=== PATIENT | female | born 1960 | race Two or more races ===

== ENCOUNTER 2024-11-12 13:13 | Emergency (ER) | payer OTHER, MEDICAID ==
[~2024-11-12] VITALS: Ht 165.1 cm; Wt 90.0 kg
[~2024-11-12 13:13] MED LIST: ALBUAER3 IN; ASPI81CH59 PO; ATOR10TA PO; BUPR-413 PO; FLUT1AER3 IN; IRBE300T79 PO; METH5TAB98 PO
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
--- NOTE | 2024-11-12 14:50 | DVH ---
EXAM: XY LUMBAR SPINE 3 VIEW HISTORY: lower back pain COMPARISON: For reasons unknown, CT scan of the lumbar spine dated 01/09/2024 was not made available in the PACS system for viewing. TECHNIQUE: AP and lateral views of the lumbar spine and spot lateral of the lumbosacral junction were performed. FINDINGS/IMPRESSION: 1. Probable chronic mild superior endplate compression fracture of L2. Recommend comparison with pre vious CT scan of the lumbar spine to evaluate if this is a stable or new finding. 2. Postoperative changes of L3-L5 discectomy, laminectomy, and posterior spinal fusion with pedicle s crews and rods. No evidence of hardware failure or complication at this time. 3. Severe osteoarthritis of the left hip, not fully imaged here. 4. Fecal retention in the partially visualized colon which may indicate constipation.
[2024-11-12 15:29] VITALS: PULSE 79; RESP 18; O2SAT 96
[2024-11-12] MEDS: HYDROcodone-ACET 5/325MG TAB PO ONE (15:29)
[2024-11-12] MEDS: BACLOFEN 10 MG TAB PO ONE (16:56)
[2024-11-12 17:05] VITALS: BP 135/87; PULSE 88; RESP 18; TEMP 98.3; O2SAT 98
[2024-11-12] MEDS ORDERED: OXYC-998 PO (17:09)
== END 2024-11-12 17:28 | disposition home or self-care (01) ==
LOC: EDBD 13:13 → ER 13:13
DX: S39.012A Strain of muscle, fascia and tendon of lower back, initial encounter (principal); Z79.899 Other long term (current) drug therapy; V89.2XXA Person injured in unspecified motor-vehicle accident, traffic, initial encounter; Y93.89 Activity, other specified; Y92.410 Unspecified street and highway as the place of occurrence of the external cause; Y99.8 Other external cause status
CPT/HCPCS: 72100

== ENCOUNTER 2025-02-25 21:39 | Inpatient (IN) | payer MEDICAID, OTHER ==
[~2025-02-25] VITALS: Ht 170.2 cm; Wt 82.0 kg
[~2025-02-25 21:39] MED LIST changes: +OXYC-998 PO
[2025-02-25 22:34] VITALS: PULSE 78; RESP 22; O2SAT 94
[2025-02-25 23:01] LABS: Hematocrit 41.1 % (36.0-46.0); Hemoglobin 13.9 g/dL (12.2-16.2); Mean Corpuscular Hemoglobin 29.3 pg (28.0-32.0); Mean Corpuscular Volume 86.5 fL (80.0-100.0); Nucleated Red Blood Cells % 0.1 %
--- NOTE | 2025-02-25 23:07 | DVH ---
CHEST RADIOGRAPH Indication: sob Technique: Single frontal view of the chest was obtained Comparison: CT CHEST on DOS: 01/09/24, CR CHEST 2 VIEW on DOS: 01/05/24, XR CHEST 1 VIEW on DOS: 12/21/23 , XY CHEST TWO VIEWS ROUTINE on DOS: 08/30/23 FINDINGS/IMPRESSION: Patchy opacities within the right mid and lower lung. Possible 8 mm right lower lung nodule. This may be further assessed with CT if clinically indicated. Prominence of the interstitial markings. Enlar gement of the cardiomediastinal silhouette, likely accentuated by technique. No pleural effusion or p neumothorax. No acute osseous abnormality.
[2025-02-25 23:13] LABS: Chloride 106 mmol/L (98-107); Sodium 143 mmol/L (136-145)
[2025-02-25 23:14] LABS: Anion Gap 8 (5-15); Calcium 10.4 mg/dL (8.7-10.4); Carbon Dioxide 29 mmol/L (20-31)
[2025-02-25 23:19] LABS: BUN/Creatinine Ratio 27.5 (10.0-20.0); Blood Urea Nitrogen 11 mg/dL (9-23); Glucose 103 mg/dL (74-106)
[2025-02-25 23:35] LABS: Potassium 3.0 mmol/L (3.5-5.1)
--- NOTE | 2025-02-25 23:37 | ED.PDOC ---
History of Present Illness HPI Comments Sterile female comes in stating that she felt off over the last two days. Says she has been feeling some mild dizziness. States today it got much worse. She went to stand up and felt very fatigued tired and dizzy. States she has been coughing up phlegm and sputum over the last two days. She tried using her breathing treatments with no help. States no chest pain. No fever no chills. Nothing makes it better, nothing makes it worse. States she has been out of her blood pressure medications for the last two weeks. Today she also felt a pulsating in her ears. Chief Complaint: Dizziness Time Seen by MD: 22:12 Reviewed Notes: Nurses Notes Allergies: Coded Allergies: NO KNOWN ALLERGIES (Unverified , 08/30/23) Home Meds Active Scripts Oxycodone HCl (Oxycodone Hydrochloride) 10 Mg Tab, 10 MG PO TID PRN for 4 Days, #12 TAB Prov:ZACHARY NAGEL MD 11/12/24 Reported Medications Aspirin (Aspirin Low Dose) 81 Mg Chw, 81 MG PO DAILY, TAB.CHEW 08/30/23 Albuterol Sulfate (VENTOLIN MDI) 90 Mcg Ih, 90 MCG IN PRN, INH 08/30/23 Qzqtegcillm-Ymnuvotqqqzx-Lckmc (Trelegy Ellipta 100-62.5-25 Mcg/INH) Unknown Strength Aer, IN DAILY, AER 08/30/23 Methimazole (Methimazole) 5 Mg Tab, 5 MG PO DAILY, TAB 08/30/23 Atorvastatin Calcium (Lipitor) Unknown Strength Tab, PO DAILY, TAB 08/30/23 Irbesartan (Avapro) Unknown Strength Tab, PO DAILY, TAB 08/30/23 Bupropion Hcl (WELLBUTRIN TABLET) 100 Mg Tb, 100 MG PO DAILY, TAB 08/30/23 Information Source: Patient Mode of Arrival: EMS Past Medical History PAST MEDICAL HISTORY: Denies Surgical History: Denies all surgeries 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 PHYSICIAN 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 History Family History Family History: Reviewed,noncontributory to illness, No family hx of Cancer, No family hx of DM, No family hx of Heart jorge, No family hx of HTN, No family hx ofKidney jorge, No family hx of Liver jorge, No family hx of Lung jorge, No family hx of Stroke Social History Smoker: Non-Smoker Alcohol: Denies ETOH Use Drugs: Denies Drug Use Lives In: Home Constitutional: reports: fatigue, malaise; denies: chills, diaphoresis, fever, sweats, weakness, others EENTM: denies: blurred vision, double vision, ear bleeding, ear discharge, ear drainage, ear pain, ear ringing, eye pain, eye redness, hearing loss, mouth pain, mouth swelling, nasal discharge, nose bleeding, nose congestion, nose pain, photophobia, tearing, throat pain, throat swelling, voice changes, others Respiratory: reports: cough, SOB at rest; denies: hemoptysis, orthopnea, shortness of breath, SOB with excertion, stridor, wheezing, others Cardiovascular: reports: dizzy spells, diaphoresis; denies: chest pain, Dyspnea on exertion, edema, irregular heart beat, left arm pain, lightheadedness, palpitations, PND, syncope, others Gastrointestinal: denies: abdomen distended, abdominal pain, blood streaked bowels, constipated, diarrhea, dysphagia, difficulty swallowing, hematemesis, melena, nausea, poor appetite, poor fluid intake, rectal bleeding, rectal pain, vomiting, others Genitourinary: denies: abnormal vagina bleeding, burning, dyspareunia, dysuria, flank pain, frequency, hematuria, incontinence, pain, , vagina discharge, urgency, others Neurological: denies: dizziness, fainting, headache, left sided numbness, left sided weakness, numbness, paresthesia, pre-existing deficit, right sided numbness, right sided weakness, seizure, speech problems, tingling, tremors, weakness, others Musculoskeletal: denies: back pain, gout, joint pain, joint swelling, muscle pain, muscle stiffness, neck pain, others Integumetry: denies: bruises, change in color, change in hair/nails, dryness, laceration, lesions, lumps, rash, wounds, others Allergic/Immunocompromised: denies: Difficulty Healing, Frequent Infections, Hives, Itching, others Hematologic/Lymphatic: denies: anemia, blood clots, easy bleeding, easy bruising, swollen glands, others Physical Exam General Appearance: Mild Distress, Normal HEENT: Normal ENT Inspection, Pharynx Normal, TMs Normal Neck: Full Range of Motion, Non-Tender, Normal, Normal Inspection Respiratory: Chest Non-Tender, Lungs Clear, No Accessory Muscle Use, No Respiratory Distress, Normal Breath Sounds Cardiovascular: No Edema, No JVD, No Murmur, No Gallop, Normal Peripheral Pulses, Regular Rate/Rhythm Breast Exam: Deferred Gastrointestinal: No Organomegaly, Non Tender, No Pulsatile Mass, Normal Bowel Sounds, Soft Genitalia: Deferred Pelvic: Deferred Rectal: Deferred Extremities: No calf tenderness, Normal capillary refill, Normal inspection, Normal range of motion, Non-tender, No pedal edema Musculoskeletal : Apperance: Normal Neurologic: Alert, delivery consultant II-XII nml as Tested, No Motor Deficits, Normal Affect, Normal Mood, No Sensory Deficits Cerebellar Function: Normal Reflexes: Normal Skin: Dry, Normal Color, Warm Lymphatic: No Adenopathy Was a procedure done? Was a procedure done?: No Differential Dx Considerations may include: Pneumonia, CHF exacerbation, SD, hypertensive urgency, CVA, TIA, PE X-Ray, Labs, Meds, VS Vital Signs Date Time Temp Pulse Resp B/P (MAP) Pulse Ox O2 Delivery O2 Flow Rate FiO2 02/25/25 22:54 162/87 02/25/25 22:34 78 22 94 Room Air* 0 21 02/25/25 22:34 98.1 78 20 162/87 (112) 97 98.1 02/25/25 21:51 115 02/25/25 21:51 98.1 99 20 198/98 96 98.1 Lab Test 02/25/25 23:20 02/25/25 22:44 02/25/25 21:55 Range/Units Urine Color Pending Urine Clarity Pending Urine pH Pending Urine Specific D[place]on Pending Urine Protein Pending Urine Ketones Pending Urine Blood Pending Urine Nitrite Pending Urine Bilirubin Pending Urine Urobilinogen Pending Urine Leukocyte Esterase Pending Urine RBC Pending Urine Microscopic WBC Pending Urine Squamous Epithelial Cells Pending Urine Bacteria Pending Urine Glucose Pending White Blood Count 3.9 L 4.4-10.8 10^3/uL Red Blood Count 4.75 4.0-5.20 10^6/uL Hemoglobin 13.9 12.2-16.2 g/dL Hematocrit 41.1 36.0-46.0 % Mean Corpuscular Volume 86.5 80.0-100.0 fL Mean Corpuscular Hemoglobin 29.3 28.0-32.0 pg Mean Corpuscular Hemoglobin Concent 33.9 32.0-36.0 g/dL Red Cell Distribution Width 14.0 11.8-14.3 % Platelet Count 257 140-450 10^3/uL Mean Platelet Volume 7.7 6.9-10.8 fL Neutrophils (%) (Auto) 50.8 37.0-80.0 % Lymphocytes (%) (Auto) 34.7 10.0-50.0 % Monocytes (%) (Auto) 11.4 0.0-12.0 % Eosinophils (%) (Auto) 2.7 0.0-7.0 % Basophils (%) (Auto) 0.4 0.0-2.0 % Neutrophils # (Auto) 2.0 1.6-8.6 10 ^3/uL Lymphocytes # (Auto) 1.4 0.4-5.4 10 ^3/uL Monocytes # (Auto) 0.4 0-1.3 10 ^3/uL Eosinophils # (Auto) 0.1 0-0.8 10 ^3/uL Basophils # (Auto) 0 0-0.2 10 ^3/uL Nucleated Red Blood Cells 0.1 % Sodium Level Pending Potassium Level Pending Chloride Level Pending Carbon Dioxide Level Pending Anion Gap Pending Blood Urea Nitrogen Pending Creatinine Pending Glomerular Filtration Rate Calc Pending BUN/Creatinine Ratio Pending Serum Glucose Pending Calcium Level Pending Troponin I High Sensitivity Pending B-Type Natriuretic Peptide Pending POC Glucose 119 H 70-106 mg/dl Current Medications Medications (Trade) Dose Ordered Sig/Yeni Route Start Time Stop Time Status Last Admin Clonidine HCl (Catapres Tablet) 0.2 mg ONCE ONCE PO 02/25/25 22:45 02/25/25 22:46 DC 02/25/25 22:54 X-Ray, Labs, Meds, VS Comment Patient will be admitted for pneumonia, shortness of breath, hypertensive urgency Patient be started on Rocephin 1 g Pending CTA of chest Patient hemodynamically stable Time of 1ST Reevaluation: 23:37 Reevaluation 1ST: Unchanged Patient Education/Counseling: Diagnosis, Treatment Family Education/Counseling: Diagnosis, Treatment SEPSIS Sepsis Screen Date sepsis recognized/suspect: Feb 25, 2025 Time Sepsis recognized/suspect: 2236 Recent Procedure: No On Antibiotic Therapy: No Respiratory Rate >20: No Heart Rate >90: No Temp<36 C (96.8 F) or >38.3 C: No SBP <90 or MAP <65 mmHG: No New Acute Mental Status Change: No Is the patient on CPAP, BIPAP,: No Physician Orders Electrocardigram (02/25/25 21:55) Basic Metabolic Panel (02/25/25 22:35) B-Type Natriuretic Peptide (02/25/25 22:35) Troponin-I Hs (02/25/25 22:35) Urinalysis (02/25/25 22:35) Chest Xray 1 View (02/25/25 22:35) Troponin-I Hs (02/25/25 23:35) Troponin-I Hs (02/26/25 01:35) Ceftriaxone 1gm/50ml (Rocephin) (02/25/25 23:30) Ct Angio Chest Contrast (02/25/25 23:25) Vital Signs Date Time Temp Pulse Resp B/P (MAP) Pulse Ox O2 Delivery O2 Flow Rate FiO2 02/25/25 22:54 162/87 02/25/25 22:34 78 22 94 Room Air* 0 21 02/25/25 22:34 98.1 78 20 162/87 (112) 97 98.1 02/25/25 21:51 115 02/25/25 21:51 98.1 99 20 198/98 96 98.1 Laboratory Tests Test 02/25/25 22:44 White Blood Count 3.9 10^3/uL (4.4-10.8) L Medications Medications Dose Ordered Sig/Yeni Route Start Time Stop Time Status Last Admin Dose Admin Clonidine HCl 0.2 mg ONCE ONCE PO 02/25/25 22:45 02/25/25 22:46 DC 02/25/25 22:54 Departure 1 Departure Time of Disposition: 23:36 Impression: Primary Impression: Pneumonia Qualified Codes: J18.9 - Pneumonia, unspecified organism Additional Impressions: Lung nodule Hypertensive urgency Disposition: 09 ADMITTED INPATIENT Condition: Stable Critical Care Note Critical Care Time?: No Stability Stability form required: No Heart Score Heart Score: Heart Score Response (Comments) Value History N/A 0 EKG N/A 0 Age N/A 0 Risk Factors N/A 0 Troponin N/A 0 Total 0 ANGE GARCIAP Feb 25, 2025 23:37
--- NOTE | 2025-02-25 23:52 | DVHHPRES ---
History of Present Illness Resident Creating Document: HETAL ROSALES History of Present Illness Ms. Mancia Is a 64-year-old female with prior medical history of unspecified heart failure, hypertension, hyperlipidemia, COPD, Graves disease, esophageal erosions, and history of an ovarian tumor, who presents today with chief complaint of dizziness and shortness of breath. The patient states that 2 days ago she woke up with shortness of breath. The patient states this is constant at rest, worsens when she lays flat, and is slightly relieved with use of nebulizer at home. Additionally refers occasional productive cough with clear expectoration associated with chest tightness and bilateral lower leg swelling. She denies fever, palpitations, chest pain, nausea, vomiting, diaphoresis, loss of consciousness, and other symptoms. On evaluation in the ED, she was in mild distress, tachycardic, and hypertensive. Initial labs show WBCs 3.9, hypokalemia, hyperglycemia, BNP 399.58, TSH <0.01, UDS positive for opiates and amphetamines, and UA with no significant findings. Chest x-ray shows patchy opacities within the right mid and lower lung, possible 8 mm right lower lung nodule. CT angio shows no pulmonary embolism, no acute thoracic finding, cardiomegaly, moderate diffuse centrilobular emphysema. She was started on IV furosemide, IV antibiotics, and breathing treatments. She was admitted for further workup and monitoring. 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 GI: GI bleed Psych: Depression Musculoskeletal: Other (Chronic hip pain) Renal/: Other (History of ovarian tumor) Endocrine: Other (Graves disease) Past Surgical History: Other (Back surgery, right hand and right ear reattachment, reconstruction of side of face) Family History: Other (Mother: DVT) Smoke: <1 pack per day (1 cigarette a day, down from 1 pack a week for 40 years) ALCOHOL: none Drugs: Marijuana (Refers she smokes 1 joint a day for sleep), Other (UDS positive for methamphetamines and opiates) Lives: with Family Domestic Violence: Neg Review of Systems Review of Systems Constitutional: Refers nausea, Denies weight loss, fever and chills. HEENT: Denies changes in vision and hearing. Respiratory: Refers shortness of breath and occasional cough Cardiovascular: Refers chest tightness Denies chest pain or palpitations GI: Denies abdominal distention, abdominal pain, diarrhea : Denies dysuria and urinary frequency. Musculoskeletal: Refers left hip pain Skin: Denies rash and pruritus. Neurological: denies dizziness headache vision or hearing problems Allergies: Coded Allergies: NO KNOWN ALLERGIES (Unverified , 08/30/23) Exam Vital Signs Vital Signs Date Time Temp Pulse Resp B/P (MAP) Pulse Ox O2 Delivery O2 Flow Rate FiO2 02/25/25 22:54 162/87 02/25/25 22:34 78 22 94 Room Air* 0 21 02/25/25 22:34 98.1 98.1 Exam General: The patient alert and oriented in person place and time. Patient following commands HEENT: Normocephalic, atraumatic, normal reactive pupils, EOM intact, pink conjunctiva, pink dry mucous membrane, poor dentation Respiratory/pulmonary: Bilateral chest expansion, no pain on palpation of chest wall, vesicular murmurs present in almost all lung garcía, crackles heard predominantly in right lower lung garcía Cardiovascular: Normal RRR, normal S1 and S2, no murmurs Abdomen: Abdomen nondistended, normal bowel sounds, soft, there is no pain to palpation in any of the abdominal quadrants, no palpable masses. Extremities: Deformity of right forearm secondary to prior reattachment of right hand, bilateral lower extremity pitting edema L 3+ > R 2+, normal pulses Skin: No rashes or pruritus, there is no sacral edema present at this time. Neurological: Intact cranial nerves with no focal neurologic deficits Labs/Xrays Labs Test 02/25/25 23:35 02/25/25 23:20 02/25/25 22:44 02/25/25 21:55 Range/Units White Blood Count 3.9 L 4.4-10.8 10^3/uL Red Blood Count 4.75 4.0-5.20 10^6/uL Hemoglobin 13.9 12.2-16.2 g/dL Hematocrit 41.1 36.0-46.0 % Mean Corpuscular Volume 86.5 80.0-100.0 fL Mean Corpuscular Hemoglobin 29.3 28.0-32.0 pg Mean Corpuscular Hemoglobin Concent 33.9 32.0-36.0 g/dL Red Cell Distribution Width 14.0 11.8-14.3 % Platelet Count 257 140-450 10^3/uL Mean Platelet Volume 7.7 6.9-10.8 fL Neutrophils (%) (Auto) 50.8 37.0-80.0 % Lymphocytes (%) (Auto) 34.7 10.0-50.0 % Monocytes (%) (Auto) 11.4 0.0-12.0 % Eosinophils (%) (Auto) 2.7 0.0-7.0 % Basophils (%) (Auto) 0.4 0.0-2.0 % Neutrophils # (Auto) 2.0 1.6-8.6 10 ^3/uL Lymphocytes # (Auto) 1.4 0.4-5.4 10 ^3/uL Monocytes # (Auto) 0.4 0-1.3 10 ^3/uL Eosinophils # (Auto) 0.1 0-0.8 10 ^3/uL Basophils # (Auto) 0 0-0.2 10 ^3/uL Nucleated Red Blood Cells 0.1 % Sodium Level 143 136-145 mmol/L Potassium Level 3.0 L 3.5-5.1 mmol/L Chloride Level 106 98-107 mmol/L Carbon Dioxide Level 29 20-31 mmol/L Anion Gap 8 5-15 Blood Urea Nitrogen 11 9-23 mg/dL Creatinine 0.40 L 0.550-1.02 mg/dL Glomerular Filtration Rate Calc 112 >90 mL/min BUN/Creatinine Ratio 27.5 H 10.0-20.0 Serum Glucose 103 74-106 mg/dL Calcium Level 10.4 8.7-10.4 mg/dL B-Type Natriuretic Peptide 399.58 0-100 pg/mL POC Glucose 119 H 70-106 mg/dl SEPSIS Sepsis Screen Date sepsis recognized/suspect: Feb 25, 2025 Time Sepsis recognized/suspect: 2236 Recent Procedure: No On Antibiotic Therapy: No Respiratory Rate >20: No Heart Rate >90: No Temp<36 C (96.8 F) or >38.3 C: No SBP <90 or MAP <65 mmHG: No New Acute Mental Status Change: No Is the patient on CPAP, BIPAP,: No Physician Orders Electrocardigram (02/25/25 21:55) Urinalysis (02/25/25 22:35) Chest Xray 1 View (02/25/25 22:35) Troponin-I Hs (02/25/25 23:35) Troponin-I Hs (02/26/25 01:35) Ceftriaxone 1gm/50ml (Rocephin) (02/25/25 23:30) Ct Angio Chest Contrast (02/25/25 23:25) Vital Signs Date Time Temp Pulse Resp B/P (MAP) Pulse Ox O2 Delivery O2 Flow Rate FiO2 02/25/25 22:54 162/87 02/25/25 22:34 78 22 94 Room Air* 0 21 02/25/25 22:34 98.1 78 20 162/87 (112) 97 98.1 02/25/25 21:51 115 02/25/25 21:51 98.1 99 20 198/98 96 98.1 Laboratory Tests Test 02/25/25 22:44 White Blood Count 3.9 10^3/uL (4.4-10.8) L Medications Medications Dose Ordered Sig/Yeni Route Start Time Stop Time Status Last Admin Dose Admin Clonidine HCl 0.2 mg ONCE ONCE PO 02/25/25 22:45 02/25/25 22:46 DC 02/25/25 22:54 0.2 MG Assessment/Plan Assessment/Plan Assessment and Plan: Acute on Chronic heart failure exacerbation (Systolic Vs. Diastolic) - BNP: 399.58 - Echocardiogram has been ordered - Furosemide 20 mg IV b.i.d. - Strict Is and Os - Cardiac diet Possible PNA (gram positive/gram negative/viral) - Chest x-ray: Patchy opacities within the right mid and lower lung - Ceftriaxone 1 g IV daily - Azithromycin 250 mg IV daily - Sputum, Blood, and urine cultures ordered - Albuterol 2.5 mg nebulizer once - Atrovent 0.5 mg nebulizer q.6 hours PRN - Levalbuterol 0.625 mg nebulizer q.6 hours COPD exacerbation - Symbicort 0.5 mg nebulizer b.i.d. - On Methylprednisolone 40 mg IV bid Hypertensive Crisis - likely secondary to uncontrolled hyperthyroidism - Clonidine 0.2 mg p.o. once - Valsartan 80 mg p.o. daily - Monitor blood pressure readings Hypokalemia, 3.0 - Potassium IV 40 mEq once - Potassium IV 50 mEq once Graves Disease, uncontrolled - TSH < 0.01, FT4: 5.87, total T3 4.8 - Methimazole 5 mg p.o. daily - Ordered auto-antibodies - Initiate propranolol once CHF exacerbation has resolved R/o DVT - Bilateral venous duplex ultrasound has been ordered Hyperlipidemia - On Atorvastatin 20 mg PO daily Prediabetes, HbA1c 6.1 - Monitor glucose readings Depression - Continue bupropion Right Lower Lung Nodule - Chest x-ray: Possible 8 mm right lower lung nodule - F/u with CT in 3 months GERD - Protonix 40 mg IV daily History of Ovarian Tumor - no recurrence - Monitor Tobacco use - I have counseled the patient on the importance of complete tobacco cessation for 11 minutes. Polysubstance Use - I have counseled the patient on the importance of complete illicit substance use cessation for 13 minutes. Obesity, BMI 31.3 kg/m2 Diet: Cardiac DVT prophylaxis: Enoxaparin 40 mg SC daily GI prophylaxis: Protonix 40 mg IV daily Case discussed with Dr. Bray Goals of care discussed with the patient for over 33 minutes. FULL CODE. Plan discussed with: Patient, Other (Nurses) Date of Service: Feb 25, 2025 Billing Provider: CATY OVALLES MD Common Visit Codes: [id number] INP/OBS CARE (HIGH) Secondary Visit Codes: [id number] CARE PLAN 30 MINUTES HETAL ROSALES RESIDENT Feb 25, 2025 23:52 TIAN MEDINA RESIDENT Feb 26, 2025 04:40
[2025-02-25] MEDS: IPRATROPIUM BROM 0.5 MG/2.5ML INH SOL NEB ONE (23:54)
[2025-02-25] MEDS ORDERED: IOHEXOL 350 MG/ML 100ML IJ ONE (23:54)
[2025-02-25] MEDS: ALBUTEROL SULF 2.5 MG/0.5ML(0.5%) NEB SOLN NEB ONE (23:54)
[2025-02-25 23:56] LABS: Urine Protein, UAD Negative (Negative)
[2025-02-26] VITALS (15 sets, daily range): BP systolic 132–145; BP diastolic 68–89; PULSE 76–120; RESP 18–30; TEMP 97.7–98.7; O2SAT 90–100
[2025-02-26] MEDS ORDERED: ALBUTEROL SULF 2.5 MG/0.5ML(0.5%) NEB SOLN NEB PRN (00:30)
[2025-02-26 00:43] LABS: Alanine Aminotransferase 18.0 U/L (7-40); Albumin 3.8 g/dL (3.2-4.8); Alkaline Phosphatase 95.0 U/L (46-116); Bilirubin, Total 0.7 mg/dL (0.2-1.0); Magnesium 1.6 mg/dL (1.6-2.6); Total Protein 6.1 g/dL (5.7-8.2)
[2025-02-26] MEDS: AZITHROMYCIN 500MG/ 250ML 250 ML IV SCH (01:00)
[2025-02-26] MEDS: FUROSEMIDE 20 MG/2 ML VIAL IV SCH (01:00)
--- NOTE | 2025-02-26 01:07 | DVH ---
CTA Chest with intravenous contrast INDICATION: sob COMPARISON: XY CHEST XRAY 1 VIEW on DOS: 02/25/25, CT CHEST on DOS: 01/09/24, CR CHEST 2 VIEW on DOS: , XR CHEST 1 VIEW on DOS: 12/21/23, XY CHEST TWO VIEWS ROUTINE on DOS: 08/30/23 TECHNIQUE: Multidetector spiral CTA of the chest was performed of the chest with intravenous contrast . PULMONARY ANGIOGRAPHY PROTOCOL was utilized using a bolus-tracking technique centered on the main p ulmonary artery. Axial, coronal and sagittal multiplanar and MIP reformats were performed. Radiation Dose : 1. Chest: CTDI volume is 18.35 mGy. Dose-length product is 660.04 mGy*cm The dose indicators for CT are the volume Computed Tomography (CT) Dose Index (CTDIvol) and the Dose Length Product (DLP), and are measured in units of mGy and mGy-cm, respectively. These indicators are not patient dose, but values generated from the CT scanner acquisition factors. The report includes radiation exposure data for exposures received during this examination. Findings: Pulmonary artery: No pulmonary embolism. Lower neck: Moderate symmetric appearing thyroid enlargement. Lungs: No focal consolidation, pleural effusion or pneumothorax. Moderate diffuse parenchymal changes consistent with sequelae of centrilobular emphysema. Mild bibasilar atelectasis. Heart/Vascular Structures: Cardiomegaly. No pericardial effusion. Atherosclerotic vascular calcificat ions. Lymph Nodes: No adenopathy. Musculoskeletal: No acute osseous abnormality. Soft tissues: Normal. Upper abdomen: Limited portions of the upper abdomen are unremarkable. IMPRESSION: 1. No pulmonary embolism. 2. No acute thoracic finding. 3. Cardiomegaly. 4. Moderate diffuse centrilobular emphysema.
[2025-02-26] MEDS: POTASSIUM EFFERVESENT TAB 25 MEQ PO ONE (01:30)
[2025-02-26 01:50] LABS: Bilirubin, Direct 0.3 mg/dL (<0.3)
[2025-02-26 02:08] LABS: Cannabinoid Screen, Urine Neg (NEGATIVE)
[2025-02-26 02:09] LABS: Free T4 (Free Thyroxine) 5.87 ng/dL (0.89-1.76)
[2025-02-26 02:11] LABS: Amphetamine Screen, Urine Pos (NEGATIVE); Barbiturate Scree,Urine Neg (NEGATIVE); Benzodiazephine Screen, Urine Neg (NEGATIVE); Cocaine Screen, Urine Neg (NEGATIVE); Opiate Scree,Urine Pos (NEGATIVE); Phencyclidine Screen, Urine Neg (NEGATIVE)
[2025-02-26] MEDS: MORPHINE SULFATE INJ 2 MG/ml SYRG IV ONE (02:15)
[2025-02-26] MEDS: ONDANSETRON HCL 4 MG/2 ML VIAL IV ONE (02:30)
[2025-02-26] MEDS: HYDROcodone-ACET 5/325MG TAB PO ONE (03:13)
[2025-02-26] MEDS: POTASSIUM CHL 20MEQ/100ML 100 ML IV SCH (05:04)
[2025-02-26] MEDS: MORPHINE SULFATE 4 MG/ML SYR/VIAL IV ONE (05:06)
[2025-02-26 05:58] LABS: Hematocrit 39.6 % (36.0-46.0); Hemoglobin 13.5 g/dL (12.2-16.2); Mean Corpuscular Hemoglobin 28.9 pg (28.0-32.0); Mean Corpuscular Volume 85.0 fL (80.0-100.0); Nucleated Red Blood Cells % 0.1 %
[2025-02-26 06:10] LABS: Chloride 104 mmol/L (98-107)
[2025-02-26 06:11] LABS: Anion Gap 11 (5-15); Calcium 9.9 mg/dL (8.7-10.4); Carbon Dioxide 30 mmol/L (20-31)
[2025-02-26 06:16] LABS: BUN/Creatinine Ratio 24.4 (10.0-20.0); Blood Urea Nitrogen 11 mg/dL (9-23)
[2025-02-26 06:35] LABS: Glucose 153 mg/dL (74-106); Potassium 3.0 mmol/L (3.5-5.1); Sodium 145 mmol/L (136-145)
[2025-02-26] MEDS: BUDESONIDE (INHALATION) 0.5 MG/2 ML NEB NEB SCH (07:04)
[2025-02-26] MEDS: LEVALBUTEROL HCL 1.25 MG/3 ML NEB NEB SCH (07:04)
[2025-02-26] MEDS: IPRATROPIUM BROM 0.5 MG/2.5ML INH SOL NEB PRN (07:04)
[2025-02-26] MEDS: methIMAzole 5 MG TAB PO SCH (09:34)
[2025-02-26] MEDS: methylPREDNISolone SOD SUCC 40 MG/ML VL IV SCH (09:34)
[2025-02-26] MEDS: VALSARTAN 80 MG TAB PO SCH (09:36)
[2025-02-26] MEDS: ENOXAPARIN SOD 40 MG/0.4 ML SYRINGE SC SCH (09:37)
--- NOTE | 2025-02-26 09:44 | DVH ---
Bilateral lower extremity venous duplex Clinical History: edema Comparison: None Findings: Duplex Doppler evaluation of the deep venous systems of both lower extremities from the common femora l veins to the popliteal veins including color Doppler and spectral/pulsed waveform analysis was perf ormed. RIGHT SIDE: The common femoral vein demonstrates appropriate compressibility and waveform variability. There is compressibility/patency of the great saphenous vein at the proximal thigh. The femoral vein demonstrates appropriate compressibility and waveform variability. The deep femoral vein demonstrates appropriate compressibility and waveform variability. The popliteal vein demonstrates appropriate compressibility and waveform variability. There is normal compressibility at the tibioperoneal trunk. LEFT SIDE: The common femoral vein demonstrates appropriate compressibility and waveform variability. There is compressibility/patency of the great saphenous vein at the proximal thigh. The femoral vein demonstrates appropriate compressibility and waveform variability. The deep femoral vein demonstrates appropriate compressibility and waveform variability. The popliteal vein demonstrates appropriate compressibility and waveform variability. There is normal compressibility at the tibioperoneal trunk. IMPRESSION: No right or left femoropopliteal venous thrombosis. If clinical concern/symptoms persist or worsen, short-interval follow-up study is suggested. END IMPRESSION:
--- NOTE | 2025-02-26 13:18 | DVHPN2 ---
Reviewed: Care Plan, H&P, Labs, Medications, Previous Orders, Radiology Changes from previous H/P or p: No Changes General: Per HPI Objective Vitals Vital Signs Date Time Temp Pulse Resp B/P (MAP) Pulse Ox O2 Delivery O2 Flow Rate FiO2 02/26/25 11:15 106 30 97 02/26/25 11:07 Room Air 0.0 02/26/25 11:07 21 02/26/25 09:36 132/77 02/26/25 08:48 98.3 98.3 Intake/Output Intake and Output 02/26/25 07:00 Intake Total 700 ml Balance 700 ml Intake Oral 700 ml Medications Current Medications Medications Dose Ordered Sig/Yeni Route Start Time Stop Time Status Last Admin Dose Admin Ipratropium [place] 0.5 mg Q6HPRN PRN NEB 02/26/25 00:30 02/26/25 11:07 0.5 MG Methimazole 5 mg DAILY PO 02/26/25 10:00 02/26/25 09:34 5 MG Furosemide 20 mg BIDD IV 02/26/25 01:00 02/26/25 01:00 20 MG Valsartan 80 mg DAILY PO 02/26/25 10:00 02/26/25 09:36 80 MG Azithromycin 250 ml @ 125 mls/hr DAILY IV 02/26/25 01:00 02/26/25 09:37 125 MLS/HR Ceftriaxone Sodium 50 ml @ 100 mls/hr DAILY@09 IV 02/26/25 09:00 02/26/25 09:33 100 MLS/HR Enoxaparin Sodium 40 mg DAILY SC 02/26/25 10:00 02/26/25 09:37 40 MG Levalbuterol HCl 0.625 mg Q6HR NEB 02/26/25 06:00 02/26/25 11:07 0.625 MG Budesonide 0.5 mg BID NEB 02/26/25 10:00 02/26/25 07:04 0.5 MG Bupropion HCl 100 mg DAILY PO 02/26/25 10:00 02/26/25 09:34 100 MG Aspirin 81 mg DAILY PO 02/26/25 10:00 02/26/25 09:35 81 MG Atorvastatin Calcium 20 mg HS PO 02/26/25 22:00 Methylprednisolone Sodium Succinate 40 mg BID IV 02/26/25 10:00 02/26/25 09:34 40 MG Laboratory Results Laboratory Tests 02/26/25 05:40 Chemistry Test 02/25/25 22:44 02/26/25 05:40 Albumin 3.8 g/dL (3.2-4.8) Calcium Level 10.4 mg/dL (8.7-10.4) 9.9 mg/dL (8.7-10.4) Magnesium Level 1.6 mg/dL (1.6-2.6) Phosphorus Level 4.7 mg/dL (2.4-5.1) Total Protein 6.1 g/dL (5.7-8.2) Cardiac Markers Test 02/25/25 22:44 B-Type Natriuretic Peptide 399.58 pg/mL (0-100) LFT Test 02/25/25 22:44 Alanine Aminotransferase (ALT) 18 U/L (7-40) Alkaline Phosphatase 95 U/L (46-116) Aspartate Amino Transferase (AST) 22 U/L (13-40) Direct Bilirubin 0.3 mg/dL (<0.3) Total Bilirubin 0.7 mg/dL (0.2-1.0) HgA1c, TSH Test 02/25/25 22:44 Hemoglobin A1c 6.1 % A1C (<5.7) H Thyroid Stimulating Hormone (TSH) < 0.01 uIU/mL (0.55-4.78) L Urinalysis Test 02/25/25 23:20 Urine Color Light-yellow (Yellow) Urine Clarity Clear (Clear) Urine pH 6.0 (5.0-9.0) Urine Specific Star 1.015 (1.001-1.035) Urine Protein Negative (Negative) Urine Ketones Negative (Negative) Urine Blood Negative /uL (Negative) Urine Nitrite Negative (Negative) Urine Bilirubin Negative (Negative) Urine Urobilinogen Normal mg/dL (Negative) Urine Leukocyte Esterase Trace /uL (Negative) Urine RBC 2 /hpf (0 - 4) Urine Microscopic WBC 5 /HPF (0-5) Urine Squamous Epithelial Cells Few /hpf (<5) Urine Bacteria Mod /hpf (None Seen) H Urine Hyaline Casts Few /lpf (0 - 2) Urine Mucus Few (None Seen) Urine Glucose Normal mg/dL (Normal) Assessment/Plan Assessment/Plan Ms. Mancia Is a 64-year-old female with prior medical history of unspecified heart failure, hypertension, hyperlipidemia, COPD, Graves disease, esophageal erosions, and history of an ovarian tumor, who presents today with chief complaint of dizziness and shortness of breath. The patient states that 2 days ago she woke up with shortness of breath. The patient states this is constant at rest, worsens when she lays flat, and is slightly relieved with use of nebulizer at home. Additionally refers occasional productive cough with clear expectoration associated with chest tightness and bilateral lower leg swelling. She denies fever, palpitations, chest pain, nausea, vomiting, diaphoresis, loss of consciousness, and other symptoms. On evaluation in the ED, she was in mild distress, tachycardic, and hypertensive. Initial labs show WBCs 3.9, hypokalemia, hyperglycemia, BNP 399.58, TSH <0.01, UDS positive for opiates and amphetamines, and UA with no significant findings. Chest x-ray shows patchy opacities within the right mid and lower lung, possible 8 mm right lower lung nodule. CT angio shows no pulmonary embolism, no acute thoracic finding, cardiomegaly, moderate diffuse centrilobular emphysema. Acute on Chronic heart failure exacerbation (Systolic Vs. Diastolic) - BNP: 399.58 - Echocardiogram has been ordered - Furosemide 20 mg IV b.i.d. - Strict Is and Os - Cardiac diet Possible PNA (gram positive/gram negative/viral) - Chest x-ray: Patchy opacities within the right mid and lower lung - Ceftriaxone 1 g IV daily - Azithromycin 250 mg IV daily - Sputum, Blood, and urine cultures ordered - Albuterol 2.5 mg nebulizer once - Atrovent 0.5 mg nebulizer q.6 hours PRN - Levalbuterol 0.625 mg nebulizer q.6 hours COPD exacerbation - Symbicort 0.5 mg nebulizer b.i.d. - On Methylprednisolone 40 mg IV bid Hypertensive Crisis - likely secondary to uncontrolled hyperthyroidism - Clonidine 0.2 mg p.o. once - Valsartan 80 mg p.o. daily - Monitor blood pressure readings Hypokalemia, 3.0 - Potassium IV 40 mEq once - Potassium IV 50 mEq once Graves Disease, uncontrolled - TSH < 0.01, FT4: 5.87, total T3 4.8 - Methimazole 5 mg p.o. daily - Ordered auto-antibodies - Initiate propranolol once CHF exacerbation has resolved R/o DVT - Bilateral venous duplex ultrasound has been ordered Hyperlipidemia - On Atorvastatin 20 mg PO daily Prediabetes, HbA1c 6.1 - Monitor glucose readings Depression - Continue bupropion Right Lower Lung Nodule - Chest x-ray: Possible 8 mm right lower lung nodule - F/u with CT in 3 months GERD - Protonix 40 mg IV daily History of Ovarian Tumor - no recurrence - Monitor Tobacco use - I have counseled the patient on the importance of complete tobacco cessation for 11 minutes. Polysubstance Use - I have counseled the patient on the importance of complete illicit substance use cessation for 13 minutes. Obesity, BMI 31.3 kg/m2 Diet: Cardiac DVT prophylaxis: Enoxaparin 40 mg SC daily GI prophylaxis: Protonix 40 mg IV daily Plan discussed with: Patient Date of Service: Feb 26, 2025 Billing Provider: GREGORY MORTON DO Common Visit Codes: [id number] INP/OBS CARE(HIGH) GREGORY MORTON DO Feb 26, 2025 13:18
--- NOTE | 2025-02-26 14:07 | ECG ---
[facility] Test Date: 2025-02-25 Test Time: 21:51:15 Pat Name: RK MIX Department: [facility] ED Patient ID: [facility]-[id number] Room: 0276T A Gender: F Art Consultant: JANKI : 1960 Requested By: LEAH DAWSON Order Number: [id number] Reading MD: Ari Tai Measurements Intervals [place] Rate: 115 P: 24 GA: 148 QRS: -22 QRSD: 108 T: 93 QT: 340 QTc: 471 Interpretive Statements Sinus tachycardia Atrial premature complexes Incomplete left bundle branch block LVH with secondary repolarization abnormality Anterior Q waves, possibly due to LVH Borderline ST elevation, inferior leads Electronically Signed On 02-27-2025 22:12:44 PDT by Ari Tai Please click the below link to view image of tracing.
[2025-02-26] MEDS: HYDROcodone-ACET 10/325MG TAB PO PRN (17:00)
[2025-02-26] MEDS: ATORVASTATIN 20 MG TAB PO SCH (21:20)
[2025-02-27] VITALS (15 sets, daily range): BP systolic 115–156; BP diastolic 81–95; PULSE 105–121; RESP 18–20; TEMP 97.4–98.6; O2SAT 92–100
[2025-02-27 11:04] LABS: COVID19 ANTIGEN SOFIA FIA NEGATIVE (NEGATIVE)
[2025-02-27] MEDS: POTASSIUM CHL 20MEQ/100ML 100 ML IV ONE (18:36)
--- NOTE | 2025-02-28 10:58 | DVHSR ---
APPROVED REPORT EXAM: Two-dimensional and M-mode echocardiogram with Doppler and color Doppler. Blood Pressure: 137/89 mmHg INDICATION Evaluate EF RISK FACTORS Height: 5'7", Weight: 176 DIMENSIONS LVDd6.2 (3.8-5.7cm)LA (2D)4.4 (1.9-4.0cm)Aortic Root3.6 (2.0-3.7cm) LVDs5.1 (2.5-4.0cm)LA (MM) (1.9-4.0cm)Aortic Cusp Exc2.2 (1.5-2.0cm) EF (%) 35.0 (55-70%)Rt. Atrium4.7 (1.9-4.0cm)Asc. Aorta4.3 cm IVSd1.2 (0.7-1.1cm)RV (D)3.8 (1.8-2.4cm) PWd0.8 (0.7-1.1cm) Mitral Valve MitralMitral Stenosis E/A ratio0.02D MVAcm2 Aortic Valve Aortic ValveAortic Stenosis V11.28m/[place] Mean GR.8mmHg V21.92m/[place] Peak GR.15mmHg LVOT Diameter2.4 (1.8-2.4cm)Doppler AVA3.01cm2 AI P 1/2 Lveb252.23ms Pulmonic Valve V20.97m/s Tricuspid Valve TR Velocity3.22m/s [id number] Conclusion Technically good study. Sinus rhythm. Biatrial enlargement. Aortic root enlargement. Concentric LVH. Valves are normal. Left ventricular systolic performance is diminished. EF is about 35% with global hypokinesis. Right ventricular function is mildly diminished. There is [id number] aortic insufficiency [id number] mitral insufficiency moderate tricusp id insufficiency. No pericardial effusion masses or vegetations.
== END 2025-02-27 20:30 | disposition left against medical advice (07) | DRG 137 ==
LOC: EDBD 21:39 → ER 21:39 → OVERFLOW 23:51 → TELE-WESTW 02-26 02:51
PROVIDERS: ADMIT Internal Medicine; ATTEND Internal Medicine
DX: J15.69 Pneumonia due to other Gram-negative bacteria (principal); J96.01 Acute respiratory failure with hypoxia; I50.43 Acute on chronic combined systolic (congestive) and diastolic (congestive) heart failure; I11.0 Hypertensive heart disease with heart failure; R65.11 Systemic inflammatory response syndrome (SIRS) of non-infectious origin with acute organ dysfunction; I16.0 Hypertensive urgency; Z53.29 Procedure and treatment not carried out because of patient's decision for other reasons; J44.1 Chronic obstructive pulmonary disease with (acute) exacerbation; E87.6 Hypokalemia; F32.A Depression, unspecified; E78.5 Hyperlipidemia, unspecified; K21.9 Gastro-esophageal reflux disease without esophagitis; J44.0 Chronic obstructive pulmonary disease with (acute) lower respiratory infection; E05.00 Thyrotoxicosis with diffuse goiter without thyrotoxic crisis or storm; J12.9 Viral pneumonia, unspecified; R73.03 Prediabetes; E66.9 Obesity, unspecified; Z79.82 Long term (current) use of aspirin; Z79.899 Other long term (current) drug therapy; Z83.3 Family history of diabetes mellitus; Z82.49 Family history of ischemic heart disease and other diseases of the circulatory system; Z91.148 Patient's other noncompliance with medication regimen for other reason; Z68.31 Body mass index [BMI] 31.0-31.9, adult
CPT/HCPCS: 36415; 71045; 71275; 80048; 80076; 80307; 81001; 82088; 82306; 82607; 82962; 83036; 83605; 83735; 83880; 84100; 84132; 84244; 84439; 84443; 84480; 84484; 85025; 86376; 86800; 87040; 87086; 87426; 87804; 93005; 93306; 93970; 94640; 96365; G0378; J2405; J3480

== ENCOUNTER 2025-03-08 04:35 | Inpatient (IN) | payer MEDICAID ==
[~2025-03-08] VITALS: Ht 170.2 cm; Wt 86.6 kg
--- NOTE | 2025-03-08 05:35 | ED.PDOC ---
SOB-HPI HPI Comments 64 Year old female who came to ER for shortness a breath. Patient was dis charged here last February 27, and was diagnosed with 1. Acute on Chronic heart failure exacerbation (Systolic Vs. Diastolic), 2. Possible PNA (gram positive/gram negative/viral) , 3. COPD exacerbation, 4. Hypertensive Crisis - likely secondary to uncontrolled hyperthyroidism, 5. Hypokalemia, 3.0 , 6. Graves Disease, uncontrolled, 7. Hyperlipidemia, 8. Polysubstance Use. Patient states for the past few days he has been having productive cough with progressively worsening shortness of breath. Denies Any acute chest pains. Patient is saturating 92% on room air. Patient also has history of spinal fusion, requesting for refill of her Freeland 10 mg Chief Complaint: Shortness of Breath Time Seen by MD: 05:33 Reviewed notes: Nurses Notes Information Source: Patient Mode of Arrival: Wheelchair Severity: Moderate Past Medical History PAST MEDICAL HISTORY: CHF, COPD, High Lipids, HTN, Thyroid Past Medical History (Other): Spinal Fusion Surgical History: Denies all surgeries Surgical History (Other): Back Surgery CARPENTER REPAIR History: No Pertinent CARPENTER REPAIR History Family History Family History: Reviewed,noncontributory to illness, No family hx of Cancer, No family hx of DM, No family hx of Heart jorge, No family hx of HTN, No family hx ofKidney jorge, No family hx of Liver jorge, No family hx of Lung jorge, No family hx of Stroke Social History Smoker: Cigarettes, Less Than 1 Pack/Day Alcohol: Denies ETOH Use Drugs: Methamphetamine Lives In: Home Constitutional: denies: chills, diaphoresis, fatigue, fever, malaise, sweats, weakness, others EENTM: denies: blurred vision, double vision, ear bleeding, ear discharge, ear drainage, ear pain, ear ringing, eye pain, eye redness, hearing loss, mouth pain, mouth swelling, nasal discharge, nose bleeding, nose congestion, nose pain, photophobia, tearing, throat pain, throat swelling, voice changes, others Respiratory: reports: cough, SOB at rest, shortness of breath, SOB with excertion; denies: hemoptysis, orthopnea, stridor, wheezing, others Cardiovascular: denies: chest pain, dizzy spells, diaphoresis, Dyspnea on exertion, edema, irregular heart beat, left arm pain, lightheadedness, palpitations, PND, syncope, others Gastrointestinal: denies: abdomen distended, abdominal pain, blood streaked bowels, constipated, diarrhea, dysphagia, difficulty swallowing, hematemesis, melena, nausea, poor appetite, poor fluid intake, rectal bleeding, rectal pain, vomiting, others Genitourinary: denies: abnormal vagina bleeding, burning, dyspareunia, dysuria, flank pain, frequency, hematuria, incontinence, pain, , vagina disch arge, urgency, others Neurological: denies: dizziness, fainting, headache, left sided numbness, left sided weakness, numbness, paresthesia, pre-existing deficit, right sided numbness, right sided weakness, seizure, speech problems, tingling, tremors, weakness, others Musculoskeletal: denies: back pain, gout, joint pain, joint swelling, muscle pain, muscle stiffness, neck pain, others Integumetry: denies: bruises, change in color, change in hair/nails, dryness, laceration, lesions, lumps, rash, wounds, others Allergic/Immunocompromised: denies: Difficulty Healing, Frequent Infections, Hives, Itching, others Hematologic/Lymphatic: denies: anemia, blood clots, easy bleeding, easy bruising, swollen glands, others Endocrine: denies: excessive hunger, excessive sweating, excessive thirst, excessive urination, flushing, intolerance to cold, intolerance to heat, unexplained weight gain, unexplained weight loss, others Psychiatric: denies: anxiety, bipolar disorder, depression, hopeless, panic disorder, schizophrenia, sleepless, suicidal, others Physical Exam General Appearance: No Apparent Distress, Normal HEENT: Normal ENT Inspection, Pharynx Normal, TMs Normal Neck: Full Range of Motion, Non-Tender, Normal, Normal Inspection Respiratory: Chest Non-Tender, Lungs Clear, No Accessory Muscle Use, No Respiratory Distress, Normal Breath Sounds Cardiovascular: No Edema, No JVD, No Murmur, No Gallop, Normal Peripheral Pulses, Regular Rate/Rhythm Breast Exam: Deferred Gastrointestinal: No Organomegaly, Non Tender, No Pulsatile Mass, Normal Bowel Sounds, Soft Genitalia: Deferred Pelvic: Deferred Rectal: Deferred Extremities: No calf tenderness, Normal capillary refill, Normal inspection, Normal range of motion, Non-tender, No pedal edema Musculoskeletal : Apperance: Normal Neurologic: Alert, lightning protection installer II-XII nml as Tested, No Motor Deficits, Normal Affect, Normal Mood, No Sensory Deficits Cerebellar Function: Normal Reflexes: Normal Skin: Dry, Normal Color, Warm Lymphatic: No Adenopathy Was a procedure done? Was a procedure done?: No Differential Dx Differential Diagnosis: Bronchitis, CHF, COPD, Pneumonia, Respiratory Distress X-Ray, Labs, Meds, VS Vital Signs Date Time Temp Pulse Resp B/P (MAP) Pulse Ox O2 Delivery O2 Flow Rate FiO2 03/08/25 04:37 98.6 112 18 169/94 92 98.6 Time of 1ST Reevaluation: 05:27 Reevaluation 1ST: Unchanged Patient Education/Counseling: Diagnosis, Treatment Family Education/Counseling: No Family Present SEPSIS Sepsis Screen Date sepsis recognized/suspect: Mar 08, 2025 Time Sepsis recognized/suspect: 440 Recent Procedure: No On Antibiotic Therapy: No Respiratory Rate >20: No Heart Rate >90: Yes Temp<36 C (96.8 F) or >38.3 C: No SBP <90 or MAP <65 mmHG: No New Acute Mental Status Change: No Is the patient on CPAP, BIPAP,: No Physician Orders Basic Metabolic Panel (03/08/25 05:08) Complete Blood Count (03/08/25 05:08) B-Type Natriuretic Peptide (03/08/25 05:08) Troponin-I Hs (03/08/25 05:08) Chest Portable (03/08/25 05:08) Electrocardigram (03/08/25 05:08) Troponin-I Hs (03/08/25 06:08) Troponin-I Hs (03/08/25 08:08) Electrocardigram (03/08/25 06:08) Electrocardigram (03/08/25 08:08) Lactic Acid W/ Reflex Order (03/08/25 05:36) Blood Culture (03/08/25 05:36) Sodium Chloride 0.9% (03/08/25 05:45) Cefepime 2gm/50ml Ns (Maxipime 2gm/50ml) (03/08/25 05:45) Vancomycin 1gm/250ml Kit (03/08/25 05:45) Vital Signs Date Time Temp Pulse Resp B/P (MAP) Pulse Ox O2 Delivery O2 Flow Rate FiO2 03/08/25 04:37 98.6 112 18 169/94 92 98.6 Departure 1 Departure Time of Disposition: 05:45 (Patient presented with acute shortness of breath concerning for acute on chronic COPD Exacerbation, Pneumonia, ACS, CHF, Pneumothorax. Less likely PE, Dissection. Patient does not appear septic at this time.Data: 1. I ordered and reviewed the result of at least 3 labs including a CBC, BMP, and Troponin. 2. I independently interpreted the following tests: Chest X-ray shows a pneumonia.Risk:This patient has a high risk of morbidity due to further diagnostic testing or treatment and may suffer from respiratory or cardiac etiology . Workup reveals a pneumonia, patient will be started on antibiotics, admitted for further workup and possible expert consultation.) Impression: Primary Impression: Pneumonia Additional Impression: Generalized weakness Disposition: ADMITTED INPATIENT Admit to: Med Surg Condition: Serious Critical Care Note Critical Care Time?: No Stability Stability form required: No Heart Score Heart Score: Heart Score Response (Comments) Value History N/A 0 EKG N/A 0 Age N/A 0 Risk Factors N/A 0 Troponin N/A 0 Total 0 I personally scribed for ZACHARY NAGEL MD ([email or web address]) on 03/08/25 at 05:35. Electronically submitted by Luke Okeefe ([email or web address]). ZACHARY NAGEL MD Mar 08, 2025 05:35
--- NOTE | 2025-03-08 06:01 | DVH ---
CHEST RADIOGRAPH Indication: sob Technique: Single frontal view of the chest was obtained COMPARISON: CT CT ANGIO CHEST CONTRAST on DOS: 02/26/25, XY CHEST XRAY 1 VIEW on DOS: 02/25/25, CR CHES T 2 VIEW on DOS: 01/05/24, XR CHEST 1 VIEW on DOS: 12/21/23, XY CHEST TWO VIEWS ROUTINE on DOS: 08/30/23 FINDINGS: Lines and Tubes: None Lungs: Moderate diffuse increased prominence of the pulmonary vasculature. No evidence of focal cons olidation. Pleura: No effusion. No pneumothorax. Cardiomediastinal contours: Unremarkable Bones: Unremarkable IMPRESSION: 1. Moderate diffuse increased prominence of the pulmonary vasculature.
[2025-03-08 06:03] LABS: Anion Gap 12 (5-15); Calcium 10.3 mg/dL (8.7-10.4); Carbon Dioxide 27 mmol/L (20-31)
[2025-03-08 06:06] LABS: Hematocrit 41.5 % (36.0-46.0); Hemoglobin 13.7 g/dL (12.2-16.2); Mean Corpuscular Hemoglobin 28.4 pg (28.0-32.0); Mean Corpuscular Volume 85.8 fL (80.0-100.0); Nucleated Red Blood Cells % 0.1 %
[2025-03-08 06:08] LABS: BUN/Creatinine Ratio 22.0 (10.0-20.0); Blood Urea Nitrogen 11 mg/dL (9-23)
[2025-03-08 06:16] LABS: Chloride 108 mmol/L (98-107); Glucose 142 mg/dL (74-106); Potassium 2.9 mmol/L (3.5-5.1); Sodium 147 mmol/L (136-145)
[2025-03-08 09:00] VITALS: PULSE 110; RESP 16; O2SAT 96
[2025-03-08] MEDS: SODIUM CHLORIDE 0.9% 1,000 ML IV ONE (09:16)
[2025-03-08] MEDS: VANCOMYCIN 1GM/250ML KIT 250 ML IV ONE (09:16)
[2025-03-08] MEDS: HYDROcodone-ACET 10/325MG TAB PO ONE (09:37)
[2025-03-08] MEDS ORDERED: ALBUTEROL SULF 2.5 MG/0.5ML(0.5%) NEB SOLN NEB PRN (10:45)
[2025-03-08] MEDS ORDERED: IPRATROPIUM BROM 0.5 MG/2.5ML INH SOL NEB PRN (10:45)
[2025-03-08] MEDS ORDERED: DEXTROSE (50%) 50ML SYRG IV PRN (10:45)
[2025-03-08] MEDS ORDERED: ACETAMINOPHEN 325 MG TAB PO PRN (10:45)
[2025-03-08] MEDS ORDERED: ONDANSETRON HCL 4 MG/2 ML VIAL IV PRN (10:45)
[2025-03-08] MEDS ORDERED: VANCOMYCIN PER PHARMACY 0 MG IV SCH (10:45)
--- NOTE | 2025-03-08 10:47 | DVHHP2 ---
History of Present Illness Reason for Visit: SOB History of Present Illness Ann Marie Mancia is a 64-year-old female with past medical history of Graves disease, pneumonia, CHF, COPD, hyperlipidemia, hypertension, hypothyroidism, spinal fusion, chronic hip pain, esophageal erosions, ovarian tumor, CVA, GI bleed, depression, right hand surgery, right ear reattachment, and reconstruction of the face who presents to the ED with shortness of breath that started last week. Patient reports that she was exposed to mold in her RV. Patient also reports that she called her PCP for pain medications due to her history of chronic pain and reports that they are closed this weekend. Patient also reports that she rents a room from a roommate. She also endorses that she smokes about 2 cigarettes per day, uses marijuana, uses meth, and uses [facility] for pain management. Patient denies any recent trauma or injury, recent sick contacts, recent travels, recent ingestion of spoiled food, chest pain, fever, chills, lightheadedness, weakness, dizziness, abdominal pain, nausea, vomiting, diarrhea, or urinary symptoms. Cardiovascular: CHF, HTN, hyperipidemia Pulmonary: COPD, Pneumonia MANAGER TRAFFIC: CVA GI: GI bleed Psych: Depression Endocrine: Hypothyroidism Past Medical History Graves disease Chronic hip pain Esophageal erosions Ovarian tumor Past Surgical History: Other (Spinal fusion, right hand surgery, right ear reattachment, and reconstruction of the face) Family History: Other (Mom with DVTs and sister with DVTs.) Smoke: <1 pack per day ALCOHOL: none Drugs: Marijuana, Other (Meth and opiate use) Lives: Roommate Domestic Violence: Neg Review of Systems Respiratory: Shortness of breath Allergies: Coded Allergies: NO KNOWN ALLERGIES (Unverified , 08/30/23) Exam Vital Signs Vital Signs Date Time Temp Pulse Resp B/P (MAP) Pulse Ox O2 Delivery O2 Flow Rate FiO2 03/08/25 09:00 110 16 96 Room Air* 0 21 03/08/25 09:00 185/99 (127) 03/08/25 04:37 98.6 98.6 General Appearance: Alert, Oriented X3, Cooperative, No acute distress HEENT: Atraumatic, PERRLA, EOMI, Mucous membr. moist/pink Respiratory: Normal air movement Cardiovascular: Normal S1, Normal S2, No murmurs Abdominal: Normal bowel sounds, Soft Extremities: No clubbing, Normal pulses Skin: No significant lesion Neuro: Normal speech, Normal tone, Sensation intact Psych/Mental Status: Mental status NL, Mood NL Labs/Xrays Labs Test 03/08/25 09:22 03/08/25 06:55 03/08/25 05:39 Range/Units Lactic Acid Level 1.3 0.4-2.0 mmol/L White Blood Count 5.0 4.4-10.8 10^3/uL Red Blood Count 4.84 4.0-5.20 10^6/uL Hemoglobin 13.7 12.2-16.2 g/dL Hematocrit 41.5 36.0-46.0 % Mean Corpuscular Volume 85.8 80.0-100.0 fL Mean Corpuscular Hemoglobin 28.4 28.0-32.0 pg Mean Corpuscular Hemoglobin Concent 33.1 32.0-36.0 g/dL Red Cell Distribution Width 14.1 11.8-14.3 % Platelet Count 276 140-450 10^3/uL Mean Platelet Volume 7.4 6.9-10.8 fL Neutrophils (%) (Auto) 62.0 37.0-80.0 % Lymphocytes (%) (Auto) 25.9 10.0-50.0 % Monocytes (%) (Auto) 10.4 0.0-12.0 % Eosinophils (%) (Auto) 1.5 0.0-7.0 % Basophils (%) (Auto) 0.2 0.0-2.0 % Neutrophils # (Auto) 3.1 1.6-8.6 10 ^3/uL Lymphocytes # (Auto) 1.3 0.4-5.4 10 ^3/uL Monocytes # (Auto) 0.5 0-1.3 10 ^3/uL Eosinophils # (Auto) 0.1 0-0.8 10 ^3/uL Basophils # (Auto) 0 0-0.2 10 ^3/uL Nucleated Red Blood Cells 0.1 % Sodium Level 147 H 136-145 mmol/L Potassium Level 2.9 L 3.5-5.1 mmol/L Chloride Level 108 H 98-107 mmol/L Carbon Dioxide Level 27 20-31 mmol/L Anion Gap 12 5-15 Blood Urea Nitrogen 11 9-23 mg/dL Creatinine 0.50 L 0.550-1.02 mg/dL Glomerular Filtration Rate Calc 106 >90 mL/min BUN/Creatinine Ratio 22.0 H 10.0-20.0 Serum Glucose 142 H 74-106 mg/dL Calcium Level 10.3 8.7-10.4 mg/dL B-Type Natriuretic Peptide 189.34 0-100 pg/mL CHEST RADIOGRAPH Indication: sob Technique: Single frontal view of the chest was obtained COMPARISON: CT CT ANGIO CHEST CONTRAST on DOS: 02/26/25, XY CHEST XRAY 1 VIEW on DOS: 02/25/25, CR CHEST 2 VIEW on DOS: 01/05/24, XR CHEST 1 VIEW on DOS: 12/21/23, XY CHEST TWO VIEWS ROUTINE on DOS: 08/30/23 FINDINGS: Lines and Tubes: None Lungs: Moderate diffuse increased prominence of the pulmonary vasculature. No evidence of focal consolidation. Pleura: No effusion. No pneumothorax. Cardiomediastinal contours: Unremarkable Bones: Unremarkable IMPRESSION: 1. Moderate diffuse increased prominence of the pulmonary vasculature. SEPSIS Sepsis Screen Date sepsis recognized/suspect: Mar 08, 2025 Time Sepsis recognized/suspect: 899 Recent Procedure: No On Antibiotic Therapy: No Respiratory Rate >20: No Heart Rate >90: Yes Temp<36 C (96.8 F) or >38.3 C: No SBP <90 or MAP <65 mmHG: No New Acute Mental Status Change: No Is the patient on CPAP, BIPAP,: No Physician Orders Chest Portable (03/08/25 05:08) Electrocardigram (03/08/25 05:08) Troponin-I Hs (03/08/25 08:08) Electrocardigram (03/08/25 06:08) Electrocardigram (03/08/25 08:08) Blood Culture (03/08/25 05:36) Vital Signs Date Time Temp Pulse Resp B/P (MAP) Pulse Ox O2 Delivery O2 Flow Rate FiO2 03/08/25 09:00 110 16 96 Room Air* 0 21 03/08/25 09:00 110 18 185/99 (127) 96 03/08/25 04:37 98.6 112 18 169/94 92 98.6 Laboratory Tests Test 03/08/25 05:39 03/08/25 06:55 White Blood Count 5.0 10^3/uL (4.4-10.8) Lactic Acid Level 1.3 mmol/L (0.4-2.0) Medications Medications Dose Ordered Sig/Yeni Route Start Time Stop Time Status Last Admin Dose Admin Acetaminophen/ Hydrocodone Bitart 1 tab ONCE ONCE PO 03/08/25 09:45 03/08/25 09:46 DC 03/08/25 09:37 1 TAB Sodium Chloride 1,000 ml @ 1,000 mls/hr Q1H ONCE IV 03/08/25 05:45 03/08/25 06:44 DC 03/08/25 09:16 1,000 MLS/HR Vancomycin HCl 250 ml @ 250 mls/hr ONCE ONCE IV 03/08/25 05:45 03/08/25 06:44 DC 03/08/25 09:16 250 MLS/HR Assessment/Plan Assessment/Plan Assessment Acute on chronic CHF versus COPD exacerbation Hypertensive urgency Hypernatremia Hypokalemia Hyperglycemia Tobacco use Marijuana use Meth use Opiate use History of hypertension History of hyperlipidemia History of Graves disease History of esophageal erosions History of ovarian tumor History of pneumonia History of chronic hip pain History of CVA History of GI bleed History of depression History of spinal fusion History of right hand surgery History of right ear reattachment History of reconstruction of face Plan [facility] Hemoglobin A1c ISS and Accu-Cheks Antihypertensives IV antibiotics-ceftriaxone Antiemetics Pain management NS 1 L given ED Blood cultures Lactic level EKG Troponin noted negative x2 Chest x-ray BNP Diurese Strict I&Os Daily weights UA UDS D-dimer Antihypertensives Duo nebs Echo on 06/22 EF is about 35% with global hypokinesis Diet Home medications reconciled DVT prophylaxis-SCDs PUD prophylaxis-PPIs Discussed plan of care with patient and nurse Counseled patient on cessation of tobacco, meth, marijuana, and opiate use 60535 Behavior change smoking greater than 10 minutes about use of other options also gave option of nicotine patch [id number] Preventive counseling healthy eating habits, physical activity, and regular checkups Plan discussed with: Patient Date of Service: Mar 08, 2025 Billing Provider: MARKUS DEE Common Visit Codes: 27601-GOVPKVA INP/OBS CARE (HIGH) Secondary Visit Codes: 45665-[id number] COUNSELING IND, 40228-NNEAG CHNG SMOKING >10MIN MARKUS DEE Mar 08, 2025 10:47
[2025-03-08 11:01] VITALS: O2SAT 94
[2025-03-08 11:03] VITALS: BP 185/99; PULSE 112; RESP 18; TEMP 98.6; O2SAT 94
[2025-03-08] MEDS: CEFEPIME 2GM/50ML NS 50 ML IV ONE (11:37)
[2025-03-08] MEDS: ACCU-CHEK COMFORT CURVE STRIP VI SCH (12:06)
[2025-03-08] MEDS: POTASSIUM CHL 20 Meq TABLET PO ONE (12:06)
[2025-03-08] MEDS: LOSARTAN POTASSIUM 50 MG TAB PO SCH (12:07)
[2025-03-08] MEDS: FUROSEMIDE 40 MG/4 ML VIAL IV SCH (12:08)
[2025-03-08] MEDS: InsuLIN REG 1unit/0.01ml Soln (100units/ml) SC SCH (12:21)
[2025-03-08] MEDS ORDERED: VANCOMYCIN 750MG KIT 100 ML IV SCH (17:00)
[2025-03-08] MEDS ORDERED: ATORVASTATIN 20 MG TAB PO SCH (22:00)
[2025-03-08] MEDS ORDERED: CEFEPIME 1GM/50ML 50 ML IV SCH (22:00)
[2025-03-09] MEDS ORDERED: methIMAzole 5 MG TAB PO SCH (10:00)
== END 2025-03-08 12:42 | disposition left against medical advice (07) | DRG 140 ==
LOC: ER 04:35 → OVERFLOW 10:33
DX: J44.1 Chronic obstructive pulmonary disease with (acute) exacerbation (principal); I50.33 Acute on chronic diastolic (congestive) heart failure; E87.0 Hyperosmolality and hypernatremia; I16.0 Hypertensive urgency; I11.0 Hypertensive heart disease with heart failure; E87.6 Hypokalemia; E78.5 Hyperlipidemia, unspecified; F17.210 Nicotine dependence, cigarettes, uncomplicated; E03.9 Hypothyroidism, unspecified; F15.90 Other stimulant use, unspecified, uncomplicated; F32.A Depression, unspecified; E05.00 Thyrotoxicosis with diffuse goiter without thyrotoxic crisis or storm; G89.29 Other chronic pain; F12.90 Cannabis use, unspecified, uncomplicated; R73.9 Hyperglycemia, unspecified; F11.90 Opioid use, unspecified, uncomplicated; Z98.1 Arthrodesis status; Z86.73 Personal history of transient ischemic attack (TIA), and cerebral infarction without residual deficits
CPT/HCPCS: 36415; 71045; 80048; 82962; 83605; 83880; 84484; 85025; 85379; 87040; 96365; 96367; 96375; G0378; J0692; J1815